=== PATIENT | female | born 1985 | race Hispanic/Latino ===

== ENCOUNTER 2020-11-06 22:16 | Emergency (ER) | payer OTHER ==
[2020-11-07 01:24] LABS: Absolute Lymphocytes (CBC) 3.5 K/uL (0.7-4.9); Basophils % 0.3 % (0-1.3); Hematocrit 31.6 % (36.0-45.0); Lymphocytes % 44.7 % (15.3-44.8); MPV 9.5 fL (7.6-11.3); RBC Red Blood Cell Count 4.18 M/uL (3.86-4.86)
[2020-11-07 01:25] LABS: Protime INR 1.06
[2020-11-07 01:38] LABS: ALT/SGPT 22 U/L (12-78); AST/SGOT 10 U/L (15-37); Albumin 3.9 g/dL (3.4-5.0); Alkaline Phosphatase 51 U/L (45-117); BUN Blood Urea Nitrogen 10 mg/dL (7-18); Bicarbonate 27 mmol/L (21-32); Bilirubin Direct < 0.1 mg/dL (0-0.2); Bilirubin Total 0.2 mg/dL (0.2-1.0); Glucose Level 97 mg/dL (74-106); Magnesium 2.2 mg/dL (1.8-2.4); NT PRO-BNP 38 pg/mL (<125); Protein, Total 7.6 g/dL (6.4-8.2); Sodium Level 139 mmol/L (136-145); Troponin (Emerg Dept Use Only) < 0.02 ng/mL (0.0-0.045)
[2020-11-07 01:59] LABS: Urine Blood Negative (Negative); Urine Glucose Negative (Negative); Urine Protein Negative (Negative); Urine pH 6.5 (5.0-7.0)
--- NOTE | 2020-11-07 05:04 | EDPHYS ---
Physician Documentation [facility] Name: Suzie White Age: 35 yrs Sex: Female : 1985 Arrival Date: 11/06/2020 Time: 22:20 Bed Waiting Private MD: ED Physician Tomás Contreras HPI: 11/07 03:20 This 35 yrs old Female presents to ER via Ambulatory with complaints of cindy Palpitations. 03:20 The patient presents with a history of irregular heart beat. Context: The symptoms cindy occur at rest. Onset: The symptoms/episode began/occurred 2 day(s) ago. Duration: The patient or guardian reports a single episode, that is still ongoing. Modifying factors: The symptoms are aggravated by nothing. Associated signs and symptoms: The patient has no apparent associated signs or symptoms. Severity of symptoms: At their worst the symptoms were mild in the emergency department the symptoms are unchanged. The patient has not experienced similar symptoms in the past. 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 - Social history:: Smoking status: Patient denies any tobacco usage or history of. ROS: 11/07 03:20 Constitutional: Negative for fever, chills, and weight loss, Eyes: Negative for injury, cindy pain, redness, and discharge, ENT: Negative for injury, pain, and discharge, Neck: Negative for injury, pain, and swelling, Respiratory: Negative for shortness of breath, cough, wheezing, and pleuritic chest pain, Abdomen/GI: Negative for abdominal pain, nausea, vomiting, diarrhea, and constipation, Back: Negative for injury and pain, : Negative for injury, bleeding, discharge, and swelling, MS/Extremity: Negative for injury and deformity, Skin: Negative for injury, rash, and discoloration, Neuro: Negative for headache, weakness, numbness, tingling, and seizure, Psych: Negative for depression, anxiety, suicide ideation, homicidal ideation, and hallucinations, Allergy/Immunology: Negative for hives, rash, and allergies, Endocrine: Negative for neck swelling, polydipsia, polyuria, polyphagia, and marked weight changes, Hematologic/Lymphatic: Negative for swollen nodes, abnormal bleeding, and unusual bruising. Cardiovascular: Positive for chest pain. Exam: 03:20 Constitutional: This is a well developed, well nourished patient who is awake, alert, cindy and in no acute distress. Head/Face: Normocephalic, atraumatic. Eyes: Pupils equal round and reactive to light, extra-ocular motions intact. Lids and lashes normal. Conjunctiva and sclera are non-icteric and not injected. Cornea within normal limits. Periorbital areas with no swelling, redness, or edema. ENT: Nares patent. No nasal discharge, no septal abnormalities noted. Tympanic membranes are normal and external auditory canals are clear. Oropharynx with no redness, swelling, or masses, exudates, or evidence of obstruction, uvula midline. Mucous membranes moist. Neck: Trachea midline, no thyromegaly or masses palpated, and no cervical lymphadenopathy. Supple, full range of motion without nuchal rigidity, or vertebral point tenderness. No Meningismus. Chest/axilla: Normal chest wall appearance and motion. Nontender with no deformity. No lesions are appreciated. Cardiovascular: Regular rate and rhythm with a normal S1 and S2. No gallops, murmurs, or rubs. Normal PMI, no JVD. No pulse deficits. Respiratory: Lungs have equal breath sounds bilaterally, clear to auscultation and percussion. No rales, rhonchi or wheezes noted. No increased work of breathing, no retractions or nasal flaring. Abdomen/GI: Soft, non-tender, with normal bowel sounds. No distension or tympany. No guarding or rebound. No evidence of tenderness throughout. Back: No spinal tenderness. No costovertebral tenderness. Full range of motion. Female : Normal external genitalia. Skin: Warm, dry with normal turgor. Normal color with no rashes, no lesions, and no evidence of cellulitis. MS/ Extremity: Pulses equal, no cyanosis. Neurovascular intact. Full, normal range of motion. Neuro: Awake and alert, GCS 15, oriented to person, place, time, and situation. Cranial nerves II-XII grossly intact. Motor strength 5/5 in all extremities. Sensory grossly intact. Cerebellar exam normal. Normal gait. Psych: Awake, alert, with orientation to person, place and time. Behavior, mood, and affect are within normal limits. 03:20 Musculoskeletal/extremity: Extremities: all appear grossly normal, with no appreciated pain with palpation, ROM: no acute changes, intact in all extremities, full active range of motion, full passive range of motion, Circulation is intact in all extremities. Sensation intact. Compartment Syndrome exam of affected extremity: is normal. DVT Exam: No signs of deep vein thrombosis. no pain, no swelling, no tenderness, negative Homans' sign noted on exam, no appreciated bluish discoloration, no erythema, no increased warmth. Vital Signs: 11/06 22:59 BP 165 / 96; Pulse 117; Resp 16 S; Temp 99(O); Pulse Ox 100% on R/A; Weight 92.99 kg bb (R); Height 5 ft. 4 in. (162.56 cm) (R); Pain 0/10; 11/07 05:18 BP 134 / 96; Pulse 74; Resp 16 S; Pulse Ox 100% on R/A; bb 11/06 22:59 Body Mass Index 35.19 (92.99 kg, 162.56 cm) MDM: 03:23 ALIYA Risk Score: Total Score = 0. Differential diagnosis: arrythmia, dehydration. Data cindy reviewed: vital signs, nurses notes, lab test result(s), EKG, radiologic studies, plain films. Data interpreted: desk monitor: rate is 117 beats/min, rhythm is regular, Pulse oximetry: on room air is 100 %. Test interpretation: by ED physician or midlevel provider: ECG, plain radiologic studies. Counseling: I had a detailed discussion with the patient and/or guardian regarding: the historical points, exam findings, and any diagnostic results supporting the discharge/admit diagnosis, lab results, radiology results, the need for outpatient follow up, for definitive care, a obstetrics gyn physician, an targeteer. 05:04 Patient medically screened. [facility] 11/07 01:17 Order name: Basic Metabolic Panel 11/07 01:17 Order name: CBC with Diff 11/07 00:17 Order name: LFT's; Complete Time: 03:20 11/07 01:17 Order name: Magnesium; Complete Time: 03:20 bb 11/07 01:17 Order name: NT PRO-BNP; Complete Time: 03:20 bb 11/07 01:17 Order name: PT-INR; Complete Time: 05:03 11/07 01:17 Order name: Troponin (emerg Dept Use Only); Complete Time: 03:20 bb 11/07 01:17 Order name: XRAY Chest (1 view) 11/07 01:18 Order name: Basic Metabolic Panel; Complete Time: 03:20 EDMS 11/07 01:18 Order name: CBC with Automated Diff; Complete Time: 03:20 EDMS 11/07 01:59 Order name: Urine Dipstick-Ancillary; Complete Time: 03:20 EDMS 11/07 02:03 Order name: Urine --Ancillary (enter results); Complete Time: 05:03 mw2 11/07 03:38 Order name: D-Dimer; Complete Time: 05:03 EDMS 11/07 01:17 Order name: EKG; Complete Time: 01:18 11/07 01:17 Order name: Cardiac monitoring 11/07 01:17 Order name: EKG - Nurse/Tech; Complete Time: 01:17 11/07 01:17 Order name: IV Saline Lock; Complete Time: 01:17 11/07 01:17 Order name: Labs collected and sent; Complete Time: 01:17 11/07 01:17 Order name: O2 Per Protocol 11/07 01:17 Order name: O2 Sat Monitoring bb Administered Medications: No medications were administered Disposition Summary: 11/07/20 05:04 Discharge Ordered Location: Home cindy Problem: new cindy Symptoms: have improved cindy Condition: Stable cindy Diagnosis - Chest pain, unspecified cindy - Palpitations cindy Followup: cindy - With: Private Physician - When: 2 - 3 days - Reason: Recheck today's complaints, Continuance of care, Re-evaluation by your physician Followup: cindy - With: - When: 2 - 3 days - Reason: Recheck today's complaints, Re-evaluation by your physician Discharge Instructions: - Discharge Summary Sheet cindy - Nonspecific Chest Pain, Adult cindy - Palpitations cindy - Nonspecific Chest Pain, Adult, [id number] cindy - Aspirin and Your Heart cindy - Palpitations, [id number] cindy Forms: - Medication Reconciliation Form cindy - Thank You Letter cindy - Antibiotic Education cindy - Prescription Opioid Use [facility] Signatures: Dispatcher [employer] EDMS Tomás Contreras MD MD cha Ballard, Brenda, RN RN bb Corrections: (The following items were deleted from the chart) 03:38 03:21 D-DIMER+[email or web address].LAB.BRZ ordered. EDMS EDMS
--- NOTE | 2020-11-07 05:04 | ER ---
Nurse's Notes [facility] Name: Suzie White Age: 35 yrs Sex: Female : 1985 Arrival Date: 11/06/2020 Time: 22:20 Bed Waiting Private MD: Diagnosis: Chest pain, unspecified;Palpitations Presentation: 11/06 22:59 Chief complaint: Patient states: she got the first Pfizer vaccine on the and bb started having symptoms on the same day she is concerned she has myocarditis symptoms are a heavy feeling, feels like her heart is working harder and she has pressure in her head. Coronavirus screen: At this time, the client does not indicate any symptoms associated with coronavirus-19. Ebola Screen: No symptoms or risks identified at this time. Initial Sepsis Screen: Does the patient meet any 2 criteria? No. Patient's initial sepsis screen is negative. Does the patient have a suspected source of infection? No. Patient's initial sepsis screen is negative. Risk Assessment: Do you want to hurt yourself or someone else? Patient reports no desire to harm self or others. Onset of symptoms was October 29, 2020. 22:59 Method Of Arrival: Ambulatory bb 22:59 Acuity: LEANDRO 3 bb Triage Assessment: 23:02 General: Appears in no apparent distress. Behavior is calm, cooperative. Pain: Denies bb pain. Neuro: Level of Consciousness is awake, alert, obeys commands, Oriented to person, place, time, situation. Cardiovascular: Capillary refill < 3 seconds Patient's skin is warm and dry. Respiratory: Airway is patent Respiratory effort is even, unlabored, Respiratory pattern is regular. GI: No signs and/or symptoms were reported involving the gastrointestinal system. Derm: Skin is pink, warm \T\ dry. Musculoskeletal: Circulation, motion, and sensation intact. 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 - Social history:: Smoking status: Patient denies any tobacco usage or history of. Screenin/18 05:18 Abuse screen: Denies threats or abuse. Nutritional screening: No deficits noted. bb Tuberculosis screening: No symptoms or risk factors identified. Fall Risk None identified. Assessment: : Reassessment: Patient is alert, oriented x 3, equal unlabored respirations, skin bb warm/dry/pink. pt treated and discharged from the [facility]. Pt verbalized understanding of and agrees to plan of care discharge instructions given pt ambulated with steady gait to exit. Vital Signs: 11/06 22:59 BP 165 / 96; Pulse 117; Resp 16 S; Temp 99(O); Pulse Ox 100% on R/A; Weight 92.99 kg bb (R); Height 5 ft. 4 in. (162.56 cm) (R); Pain 0/10; 11/07 05:18 BP 134 / 96; Pulse 74; Resp 16 S; Pulse Ox 100% on R/A; bb 11/06 22:59 Body Mass Index 35.19 (92.99 kg, 162.56 cm) bb ED Course: 11/06 22:20 Patient arrived in ED. bp1 23:02 Triage completed. bb 23:02 Arm band placed on Patient placed in waiting room, Patient notified of wait time. bb 11/07 03:20 Tomás Contreras MD is Attending Physician. [facility] 04:03 XRAY Chest (1 view) In Process Unspecified. EDOR 05:04 Bhavesh Sage MD is Referral Physician. [facility] 05:18 No provider procedures requiring assistance completed. IV discontinued, intact, bb bleeding controlled, No redness/swelling at site. Pressure dressing applied. 05:19 Patient has correct armband on for positive identification. bb Administered Medications: No medications were administered Outcome: 05:04 Discharge ordered by . cindy 05:19 Discharged to home ambulatory. bb 05:19 Condition: stable 05:19 Discharge instructions given to patient, Instructed on discharge instructions, follow up and referral plans. Demonstrated understanding of instructions, follow-up care. 05:19 Patient left the ED. bb Signatures: Dispatcher [employer] EDOR Tomás Contreras MD MD cha Ballard, Brenda, RN RN bb Neris Wheeler bp1
[2020-11-07 05:25] VITALS: TEMP 99; O2SAT 100
[2020-11-07 05:29] VITALS: BP 134/96
--- NOTE | 2020-11-07 07:10 | RAD REPORT ---
EXAM DESCRIPTION: RAD - Chest Single View - 11/07/2020 4:03 am CLINICAL HISTORY: PALPITATIONS COMPARISON: No comparisons FINDINGS: No evidence of edema or pneumonia. The heart size is within normal limits.No acute osseous abnormality. No significant pleural effusions or pneumothorax. Small nodular opacity overlying the r ight upper lung. IMPRESSION: No acute cardiopulmonary disease. Small nodular opacity overlying the right upper lobe. Consider three-month follow-up with chest radiograph to reassess and either to ensure stability or re solution.
--- NOTE | 2020-11-07 16:26 | EKG ---
Test Date: 2020-11-06 Test Time: 23:52:07 Animal Husbandry Worker: SHILO MEASUREMENT RESULTS: Intervals: Rate: 85 LA: 134 QRSD: 78 QT: 380 QTc: 452 [place]: P: 46 LA: 134 QRS: 18 T: 17 INTERPRETIVE STATEMENTS: Normal sinus rhythm Cannot rule out Anterior infarct, age undetermined Abnormal ECG No previous ECG available for comparison Electronically Signed On 11-07-20 16:22:58 CDT by Bhavesh Sage
== END 2020-11-07 05:19 | disposition home or self-care (01) ==
LOC: ER 22:16
DX: R00.2 Palpitations (principal); Z88.8 Allergy status to other drugs, medicaments and biological substances
CPT/HCPCS: 36415; 71045; 80048; 80076; 81003; 81025; 83735; 83880; 84484; 85025; 85379; 85610; 93005; 99283